=== PATIENT | male | born 1965 | race Asian ===

== ENCOUNTER 2019-11-16 17:25 | Emergency (ER) | payer OTHER ==
[~2019-11-16] VITALS: Ht 162.6 cm; Wt 61.2 kg
[2019-11-16 17:45] VITALS: Ht 162.6 cm; Wt 61.2 kg
[2019-11-16 18:26] VITALS: BP 112/72
== END 2019-11-16 19:56 | disposition home or self-care (01) ==
LOC: ED 17:25
DX: U07.1 COVID-19 (principal); B34.9 Viral infection, unspecified; I10 Essential (primary) hypertension; E11.9 Type 2 diabetes mellitus without complications
CPT/HCPCS: U0003-CS